=== PATIENT | male | born 1965 | race Caucasian/White ===

== ENCOUNTER 2016-10-27 11:29 | Day surgery (SDC) | payer BC ==
[~2016-10-27 11:29] MED LIST: LIDOCAINE W/ SODIUM BICARB 0.5 ML SYR ONE; Lactated Ringers 1,000 ML PRIMARY IV ONE; ceFAZolin Inj 2gm (Premix) 50 ML IV ONE
[2016-10-27] MEDS ORDERED: EPINEPHrine Inj (1:1,000) 30mg/30ml vial ONE (11:39)
[2016-10-27] MEDS ORDERED: Ropivacaine 0.2% VIAL 20 ML ONE (11:39)
[2016-10-27 12:20] VITALS: RESP 15
[2016-10-27] MEDS ORDERED: MIDAZOLAM 5 MG/1 ML ONE (12:23)
[2016-10-27] MEDS ORDERED: fentaNYL Inj 250 MCG/5 ML VIAL ONE (12:23)
[2016-10-27] MEDS ORDERED: LIDOCAINE MPF 2% - 5 ML (20 MG/1 ML) ONE (12:24)
[2016-10-27] MEDS ORDERED: LIDOCAINE 2%/ EPI 1:200,000 - 20 ML VIAL ONE (13:21)
[2016-10-27] MEDS ORDERED: BUPIVACAINE 0.5% W/EPI MPF -30 ML VIAL IV ONE (13:21)
[2016-10-27] MEDS ORDERED: Lactated Ringers 1,000 ML PRIMARY IV ONE (14:06)
[2016-10-27] MEDS ORDERED: HYDROmorphone 2 MG/1 ML IVP PRN (14:11)
[2016-10-27] MEDS ORDERED: NORMAL SALINE 10 ML SYRINGE FLUSH IVP PRN ×2 (14:11→15:44)
[2016-10-27] MEDS ORDERED: PROMETHAZINE 25 MG/1 ML VIAL IM PRN (14:11)
[2016-10-27] MEDS ORDERED: ONDANSETRON 4 MG/2 ML VIAL IVP PRN ×2 (14:11→15:44)
[2016-10-27] MEDS ORDERED: fentaNYL Inj 100 MCG/2 ML VIAL IVP PRN (14:11)
--- NOTE | 2016-10-27 14:14 | CRNA.PROCE ---
Nerve Block Documentation - - Safety Measures: Time Out Taken, Site Verified - - Type of Nerve Block Used: Right Interscalene Block Position for Nerve Block: Supine Moniters Used During Block: EKG, SPO2, NIBP Oxygen Sumpplented: Yes Sedation Used - Enter Amount in Comment Field: Midazolam (mg): Yes (4mg iv), Fentanyl (mcg): Yes (50mcg iv) Skin Prep Used: ChloroPrep Technique: Nerve Stimulator Nerve Block Needle Used: 40 mm ProBlk II Stimulation Hz: 1.0 Stimulation Staring mA: 1.2 Stimulation Ending mA: 0.5 Local Anesthetic - Enter Amt in Comment Field: 0.5 % Bupivicaine with Epinephrine 1:200,000 (mL): Yes (20ml), 2 % Xylocaine with Epinephrine 1:200, 000 (mL): Yes (20ml)
[2016-10-27] MEDS ORDERED: Lactated Ringers 1,000 ML PRIMARY IV SCH ×2 (14:15→15:45)
[2016-10-27] MEDS ORDERED: BETAMET ACET/BETAMET NA PH 6 MG/1 ML - 5 ML ONE (14:40)
[2016-10-27] MEDS ORDERED: MORPHINE SULFATE 2 MG/1 ML IVP PRN (15:44)
[2016-10-27] MEDS ORDERED: HYDROcodone-APAP 7.5 MG-325 MG TABLET PO PRN (15:44)
[2016-10-27 16:37] VITALS: TEMP 98.2
--- NOTE | 2016-10-28 16:51 | OPS SHOULD ---
Diagnosis : Right [place] Referral Reason: Instruction in Activities of Daily Living/Shoulder Cryo Cuff ( Cuff Only) O: The patient was instructed in activities of daily living including dressing and bathing, as well as shoulder do's and don'ts. The patient was issued a cryo cuff for the right shoulder and instructed in its proper use and care. P: No further therapy is indicated at this time. The patient will begin outpatient physical therapy. NNEKA
== END 2016-10-27 17:20 | disposition home or self-care (01) ==
LOC: SDSC 11:29
PROVIDERS: ATTEND Orthopaedic Surgery
DX: M75.41 Impingement syndrome of right shoulder (principal); S43.431A Superior glenoid labrum lesion of right shoulder, initial encounter; M19.011 Primary osteoarthritis, right shoulder
CPT/HCPCS: 29823; 29824; 97535; J0171; J0690; J0702; J2704; J2795; J3010; S0020; J2001; J2250; J7120

== ENCOUNTER → 2017-03-04 | Outpatient (CLI) | payer BC ==
--- NOTE | 2017-03-05 15:06 | DI ---
XR CLAVICLE,03/04/2017 3:19 PM: Clinical History: Right shoulder pain Previous Exam: August 14, 2016 Findings: A single view of the right clavicle is obtained, and demonstrates foreshortening of the right distal clavicle. The right glenohumeral joint is grossly normal. The right lung apex is normal as well. Impression: Irregular foreshortening of the right distal clavicle may represent postsurgical changes or posttraum atic osteolysis. Correlate clinically.
== END ==
LOC: ORTHO 15:28
PROVIDERS: ATTEND Orthopaedic Surgery
DX: M25.511 Pain in right shoulder (principal); M19.011 Primary osteoarthritis, right shoulder; Z98.890 Other specified postprocedural states
CPT/HCPCS: 73000

== ENCOUNTER 2017-05-04 05:56 | Day surgery (SDC) | payer BC ==
[2017-05-04] MEDS ORDERED: ceFAZolin Inj 2gm (Premix) 50 ML IV ONE (06:03)
[2017-05-04] MEDS: Lactated Ringers 1,000 ML PRIMARY IV ONE (06:27)
[2017-05-04] MEDS: LIDOCAINE W/ SODIUM BICARB 0.5 ML SYR ONE (06:27)
[2017-05-04] MEDS ORDERED: BUPIVACAINE 0.5% W/EPI MPF -30 ML VIAL IV ONE (07:03)
[2017-05-04] MEDS ORDERED: fentaNYL Inj 250 MCG/5 ML VIAL ONE (07:03)
[2017-05-04] MEDS ORDERED: MIDAZOLAM 5 MG/1 ML ONE (07:03)
[2017-05-04] MEDS ORDERED: LIDOCAINE 2%/ EPI 1:200,000 - 20 ML VIAL ONE (07:03)
[2017-05-04] MEDS ORDERED: LIDOCAINE MPF 2% - 5 ML (20 MG/1 ML) ONE (07:29)
[2017-05-04] MEDS ORDERED: ONDANSETRON 4 MG/2 ML VIAL ONE (08:06)
[2017-05-04] MEDS ORDERED: KETOROLAC 30 MG/1 ML VIAL ONE (08:06)
[2017-05-04] MEDS ORDERED: KETAMINE 100 MG/1 ML - 5 ML ONE (08:06)
[2017-05-04] MEDS ORDERED: ePHEDrine Inj 50 MG/ML AMP ONE (08:16)
[2017-05-04] MEDS ORDERED: Lactated Ringers 1,000 ML PRIMARY IV ONE (08:40)
[2017-05-04] MEDS ORDERED: BUPivacaine Liposome/PF (Exparel) Inj 20ml vial INFIL ONE (08:40)
[2017-05-04] MEDS: BUPivacaine Liposome/PF (Exparel) Inj 20ml vial INFIL ONE (08:48)
[2017-05-04] MEDS ORDERED: BISACODYL 5 MG TABLET PO PRN (08:59)
[2017-05-04] MEDS ORDERED: diphenhydrAMINE 25 MG CAPSULE PO PRN (08:59)
[2017-05-04] MEDS ORDERED: BISACODYL 10 MG SUPPOSITORY RECTAL PRN (08:59)
[2017-05-04] MEDS ORDERED: ACETAMINOPHEN 325 MG TABLET PO PRN (08:59)
[2017-05-04] MEDS ORDERED: MAG HYDROX/AL HYDROX/SIMETH 30 ML SUSP PO PRN (08:59)
[2017-05-04] MEDS ORDERED: HYDROmorphone 2 MG/1 ML IVP PRN (08:59)
[2017-05-04] MEDS ORDERED: HYDROcodone-APAP 7.5 MG-325 MG TABLET PO PRN (08:59)
[2017-05-04] MEDS ORDERED: ONDANSETRON 4 MG/2 ML VIAL IVP PRN (08:59)
[2017-05-04] MEDS ORDERED: CALCIUM CARBONATE 500 MG (TUMS) CHEWABLE TABLET PO PRN (08:59)
[2017-05-04] MEDS ORDERED: Prochlorperazine Tab 10 MG TAB PO PRN (08:59)
[2017-05-04] MEDS ORDERED: Ondansetron ODT Tab 8 MG TAB PO PRN (08:59)
[2017-05-04] MEDS ORDERED: IBUPROFEN 400 MG TABLET PO PRN (08:59)
[2017-05-04] MEDS ORDERED: NORMAL SALINE 10 ML SYRINGE FLUSH IVP PRN (08:59)
[2017-05-04] MEDS ORDERED: Lactated Ringers 1,000 ML PRIMARY IV SCH (09:00)
--- NOTE | 2017-05-04 09:25 | CRNA.PROCE ---
Nerve Block Documentation - - Safety Measures: Time Out Taken, Site Verified - - Type of Nerve Block Used: Right Interscalene Block Position for Nerve Block: Supine Moniters Used During Block: EKG, SPO2, NIBP Oxygen Sumpplented: Yes Sedation Used - Enter Amount in Comment Field: Midazolam (mg): Yes (5mg), Fentanyl (mcg): Yes (50mcg) Skin Prep Used: ChloroPrep Technique: Nerve Stimulator Nerve Block Needle Used: 40 mm ProBlk II Stimulation Hz: 1.0 Stimulation Staring mA: 1.2 Stimulation Ending mA: 0.5 Local Anesthetic - Enter Amt in Comment Field: 0.5 % Bupivicaine with Epinephrine 1:200,000 (mL): Yes, 2 % Xylocaine with Epinephrine 1:200,000 (mL): Yes
[2017-05-04 09:57] VITALS: RESP 12
[2017-05-04 11:01] VITALS: TEMP 97.6
== END 2017-05-04 10:32 | disposition home or self-care (01) ==
LOC: SDSC 05:56
PROVIDERS: ATTEND Orthopaedic Surgery
DX: M19.011 Primary osteoarthritis, right shoulder (principal)
CPT/HCPCS: 23120; C9290; J0690; J1885; J2001; J2250; J2405; J2704; J3010; S0020; J7120